=== PATIENT | female | born 1955 | race Caucasian/White ===

== ENCOUNTER 2017-07-01 15:58 | Emergency (ER) | payer OTHER ==
--- NOTE | 2017-07-01 17:10 | ED ---
Lower Extremity - HPI Summary HPI Summary: 62 yr old female with the complaint of left ankle and foot pain. Onset of pain was 1030 am today. The patient states she twisted her ankle and has pain in the left lateral malleolus, and on top of the left foot. The patient has pain 10/10. The pain is worse with ambulating and bearing weight. Pain is non radiating. - History of Current Complaint Chief Complaint: UCLowerExtremity Stated Complaint: LEFT FOOT INJURY Time Seen by Provider: 07/01/17 16:36 - Allergies/Home Medications Allergies/Adverse Reactions: Allergies Allergy/AdvReac Type Severity Reaction Status Date / Time Statins AdvReac See Comment Verified 07/01/17 16:35 Home Medications: Home Medications Activa 1 tab PO SEE INSTRUCTIONS 07/01/17 [History] Fluticasone-Salmeterol 100-50* [Advair Diskus 100-50*] 1 puff INH SEE INSTRUCTIONS 07/01/17 [History Confirmed 07/01/17] Gabapentin CAP(*) [Neurontin 100 mg CAP(*)] 1 tab PO SEE INSTRUCTIONS 07/01/17 [ History Confirmed 07/01/17] Insulin Lispro [Humalog] 100 unit SC 07/01/17 [History Confirmed 07/01/17] Ceylon-3 Fatty Acids [Fish Oil] 1,000 mg PO SEE INSTRUCTIONS 07/01/17 [History Confirmed 07/01/17] Pravastatin Sodium [Pravachol] 40 mg PO EVERY OTHER DAY 07/01/17 [History Confirmed 07/01/17] Tiotropium CAP.INH* [Spiriva CAP.INH*] 1 cap.inh INH SEE INSTRUCTIONS 07/01/17 [ History Confirmed 07/01/17] PMH/Surg Hx/FS Hx/Imm Hx Endocrine/Hematology History: Reports: Hx Diabetes Respiratory History: Reports: Hx Chronic Obstructive Pulmonary Disease (COPD) - Surgical History Surgery Procedure, Year, and Place: PT SCHEDULED FOR NECK SX. L HIP REPLACEMENT Infectious Disease History: Yes Infectious Disease History: Reports: Hx of Known/Suspected MRSA Denies: Traveled Outside the [place] in Last 30 Days - Family History Known Family History: Positive: Diabetes - Social History Alcohol Use: None Substance Use Type: Reports: None Smoking Status (MU): Former Smoker Review of Systems Constitutional: Negative All Other Systems Reviewed And Are Negative: Yes Physical Exam Triage Information Reviewed: Yes Vital Signs On Initial Exam: Initial Vitals Temp Pulse Resp BP 99 F 68 16 126/70 07/01/17 16:27 07/01/17 16:27 07/01/17 16:27 07/01/17 16:27 Vital Signs Reviewed: Yes Appearance: Positive: Well-Appearing, No Pain Distress Skin: Positive: Warm, Skin Color Reflects Adequate Perfusion Head/Face: Positive: Normal Head/Face Inspection Eyes: Positive: EOMI ENT: Positive: Normal ENT inspection Neck: Positive: Nontender Respiratory/Lung Sounds: Positive: Clear to Auscultation, Breath Sounds Present Cardiovascular: Positive: Normal, RRR. Negative: Murmur Abdomen Description: Positive: Nontender Musculoskeletal: Positive: Other - tender over the left lateral malleolus and over the top of the left foot. No STS, no edema, no bruising. Neurological: Positive: Sensory/Motor Intact, Alert, Oriented to Person Place, Time, CN Intact II-III Psychiatric: Positive: Normal - Brittni Coma Scale Best Eye Response: 4 - Spontaneous Best Motor Response: 6 - Obeys Commands Best Verbal Response: 5 - Oriented Procedures - Splinting Location: left leg Hand-Made Type: orthoglass Splint: posterior splint from distal foot to just below the knee Pre-Proc Neuro Vasc Exam: normal Post-Proc Neuro Vasc Exam: normal Diagnostics - Vital Signs Vital Signs Temp Pulse Resp BP 07/01/17 16:27 99 F 68 16 126/70 - Laboratory Lab Statement: Any lab studies that have been ordered have been reviewed, and results considered in the medical decision making process. - Radiology ankle/foot left xray Xray Interpretation: Positive (See Comments) - The left foot read as negative. The left ankle film is with an avulsion fracture. Radiology Interpretation Completed By: Radiologist Re-Evaluation - Re-Evaluation First Eval Re-Evaluation Time: 18:38 Change: Improved Comment: Patient reports after splint applied her pain is zero out of 10 now. All gone. Lower Extremity Course/Dx - Course Course Of Treatment: 62 yr old female with ankle fracture non displaced. Posterior splint applied and referral to Dr Gutierrez for follow up, ortho. - Diagnoses Provider Diagnoses: closed non displaced fibula fracture Discharge - Discharge Plan Condition: Good Disposition: HOME Prescriptions: Ibuprofen TAB* [Motrin TAB* 600 MG] 600 mg PO Q8H PRN #14 tab PRN Reason: Pain Patient Education Materials: Ankle Fracture (ED) Referrals: Sara Gutierrez MD [Medical Doctor] - 1 Day
--- NOTE | 2017-07-01 18:03 | RAD ---
INDICATION: Left ankle injury COMPARISON: None TECHNIQUE: AP, lateral, and oblique views were obtained. FINDINGS: There is a small avulsion fracture from the lateral malleolus. There are no other fractures. There is mild lateral soft tissue swelling. Incidental note is made of small heel spurs. IMPRESSION: DISTAL FIBULAR FRACTURE.
--- NOTE | 2017-07-01 18:04 | RAD ---
INDICATION: Left ankle injury. Foot injury. COMPARISON: Left ankle same date TECHNIQUE: AP, lateral, and oblique views were obtained. FINDINGS: There is no acute fracture of the foot. There is a small avulsion fracture from the lateral malleolus. There are small heel spurs. Soft tissues are normal. IMPRESSION: NO ACUTE FRACTURE OF FOOT. PLEASE REFER ALSO TO SEPARATE ANKLE REPORT.
[2017-07-01 19:02] VITALS: BP 141/66
== END 2017-07-01 19:00 | disposition home or self-care (01) ==
LOC: EDBD → UCCORT 15:58
DX: S82.402A Unspecified fracture of shaft of left fibula, initial encounter for closed fracture (principal); Z87.891 Personal history of nicotine dependence; J44.9 Chronic obstructive pulmonary disease, unspecified; E11.9 Type 2 diabetes mellitus without complications; X50.1XXA Overexertion from prolonged static or awkward postures, initial encounter; Y92.9 Unspecified place or not applicable
CPT/HCPCS: 99203; G0463